=== PATIENT | female | born 1970 | race Caucasian/White ===

== ENCOUNTER 2024-12-05 16:14 | Emergency (ER) | payer BC, OTHER, SELFPAY ==
--- NOTE | ~2024-12-05 | XR_ITS ---
EXAMINATION: XR elbow LT min 3V, 12/05/2024 16:20 CDT HISTORY: pain posterior hit with a chain COMPARISON: No comparisons available. Findings: No acute fracture or malalignment. No significant degenerative changes. Soft tissues unremarkable. Impression: No acute fracture or malalignment. Reviewed, dictated and finalized at location P. Impression: No acute fracture or malalignment.
--- NOTE | 2024-12-05 16:15 | ED.UPPEXIN ---
HPI - Extremity Injury (Upper) General Chief Complaint: Extremity Injury, Upper Stated Complaint: left elbow injury Time Seen by Provider: 12/05/24 16:24 Source: patient and RN notes reviewed Mode of arrival: ambulatory Limitations: no limitations History of Present Illness HPI narrative: 54-year-old female presents to the [facility] with complaints of left elbow pain. Patient reports last night that she was hit in the back lateral aspect of the elbow with a metal dog chain. Swelling noted to the posterior lateral left elbow. No treatment prior to arrival Related Data Home Medications ?Medication ?Instructions ?Recorded ?Confirmed ?Last Taken ?Type paroxetine HCl 10 mg tablet mg PO 12/05/24 Unknown History Allergies Allergy/AdvReac Type Severity Reaction Status Date / Time pseudoephedrine (From Allergy Unknown Unknown Verified 12/05/24 16:27 Sudafed) Review of Systems Review of Systems: All systems reviewed & are unremarkable except as noted in HPI and below Constitutional: Constitutional: Reports no additional constitutional complaints ENT: Reports system reviewed and no additional complaints, except as documented Cardiovascular: Cardiovascular: Reports no additional cardiovascular complaints, Denies chest pain and Denies dyspnea Respiratory: Respiratory: Reports no additional respiratory complaints, Denies chest congestion, Denies cough and Denies dyspnea Musculoskeletal: Musculoskeletal: Reports as per HPI Integumentary/Breasts: Skin/Breast: Reports system reviewed and no additional complaints, except as docu PMFSH Comments At the time of my signature, I reviewed and agree with the nursing past medical, surgical, social, and family history. There is no relevant family history pertinent to the patient complaint. Exam Const: General: cooperative, healthy appearing, comfortable, no acute distress, well developed, alert and well nourished Nutritional Appearance: well nourished Orientation/consciousness: patient oriented x3 Limitations: no limitations HENMT: Head: normal to inspection Eyes: General: appearance normal, both eyes and all related structures Alignment and Position: alignment normal Neck: Neck: normal visual inspection, full ROM, no lymphadenopathy and no meningeal signs Chest: Chest palpation & inspection: normal inspection of the chest Resp: Effort & Inspection: normal respiratory effort and able to speak in complete sentences Cardio: Rate: regular rate Skin: General skin exam: normal color and no rashes or lesions noted Neuro: General: patient oriented x3, gait normal, moves all extremities and no meningeal signs Cognition (Neuro): normal cognition Speech: normal speech Gait exam (Neuro): Normal gait present Extrem: General: normal to inspection, full ROM, capillary refill normal and normal gait Left upper extremity: shoulder/upper arm inspection abnormal; no tenderness and no swelling, elbow/forearm tenderness, swelling and normal ROM, wrist normal to inspection and normal ROM and hand normal to inspection and normal capillary refill Psych: Appearance: grossly normal and well kempt Mental Status: mental status grossly normal Speech and movement: Normal speech and movement present and Clear speech present Affect: normal affect Attitude: cooperative Course Course Level of Care: Express Care Visit Vital Signs Vital signs: Vital Signs Temperature 97.5 F L 12/05/24 16:22 Pulse Rate 99 12/05/24 16:22 Respiratory Rate 20 12/05/24 16:22 Blood Pressure 118/79 12/05/24 16:22 Pulse Oximetry 99 12/05/24 16:22 Oxygen Delivery Room Air 12/05/24 16:22 Temperature 97.5 F L 12/05/24 16:22 Pulse Rate 99 12/05/24 16:22 Respiratory Rate 20 12/05/24 16:22 Blood Pressure 118/79 12/05/24 16:22 Pulse Oximetry 99 12/05/24 16:22 Oxygen Delivery Room Air 12/05/24 16:22 Reviewed MDM - Extremity Injury (Upper) MDM Narrative Medical decision making narrative: Patient sitting in exam room. Patient is nontoxic, vitals stable. Patient presents with pain to the left lateral posterior elbow. Was hit by a dog chain. X-ray negative. Patient appropriate for outpatient treatment of a contusion. Discharge instructions reviewed with patient, as well as provided in writing per nursing staff. The instructions also include specific and strict return/GO TO THE ER as well as f/u information. All questions have been answered, and the patient deny any further questions with discharge and discharge plan. Some parts of this dictation were generated by voice recognition software and may contain typographical and/or grammatical inaccuracies. Differential Diagnosis Differential diagnosis: Likely other (Contusion, fracture) Imaging Data Radiologist's impression: EXAMINATION: XR elbow LT min 3V, 12/05/2024 16:20 CDT HISTORY: pain posterior hit with a chain COMPARISON: No comparisons available. Findings: No acute fracture or malalignment. No significant degenerative changes. Soft tissues unremarkable. Impression: No acute fracture or malalignment. Critical Care Time Critical Care Time Critical Care Time: No Discharge Plan Discharge Clinical Impression: Swelling of lymph node Contusion of elbow, left Qualifiers: Encounter type: initial encounter Qualified Code(s): S50.02XA - Contusion of left elbow, initial encounter Patient Disposition: Home Condition: Stable Instructions: Lymphadenopathy (ED), Contusion in Adults (ED) Additional Instructions: Your Xray did not show a fracture. Ice should be applied to help reduce swelling. It can be used for 20 to 30 minutes, every 2-3 hours while awake. Do not apply ice directly to your skin. Wear an Juan [place] wrap or a elbow support/brace You can alternate ibuprofen 600mg and Tylenol 650mg every 4 hours as needed for pain Please schedule a follow-up visit with your personal physician for further evaluation and treatment within 2 weeks especially if symptoms persist. For new or worsening symptoms go directly to the emergency room Patient Language: Vietnamese Prescriptions: No Action paroxetine HCl 10 mg tablet PO Follow-up/Referrals: UNKNOWN,DOCTOR [Non-Staff] Stand Alone Forms: Work/School Release IP Time of Disposition: 16:42
[2024-12-05 16:22] VITALS: BP 118/79; PULSE 99; RESP 20; TEMP 36.4; O2SAT 99
--- OUTSIDE RECORDS SUMMARY | 2024-12-05 16:22 | XMS_ITS | Encounter Summary ---
Author Organization [facility] Healthcare Address [address] [place] [id number] Care Team Providers Care Buggy Man Name Role Phone Alejandro Sanchez Primary Care Provider Encounter Details Date Type Department Care Team (Late st Contact Info) Description 12/04/2022 Telephone [facility] [address] [place] [address] Brenna Vaughn RT Social History Tobacco Use Types Packs/Day Years Used Date Smoking Tobacco: Every Day Cigarettes Smokeless Tobacco: Current Comments:Smoking History Pac ks/day: 1 Packs Alcohol Use Standard Drinks/Week Comments Yes 0 (1 standard drink = 0.6 oz pur e alcohol) socially PHQ-2 Answer Date Recorded PHQ-2 Total Score (If total score is 3 or more points, staff should administer the PHQ-9) 0 10/29/2022 Comments No Sex and Gender Information Value Date Recorded Sex Assigned at Not on file Legal Sex Female 12:16 AM [employer] Gender Identity Not on file Sexual Orientation Not on file documented as of this encounter Plan of Treatment Not on file documented as of this encounter Visit Diagnoses Not on filedocumented in this encounter Care Teams Buggy Man Relationship Specialty Start Date End Date Alejandro Sanchez PA [address] [place] [address] [address] [facility] [place] [address] PCP - General Internal Medicine 09/29/22 documented as of this encounter
--- OUTSIDE RECORDS SUMMARY | 2024-12-05 16:22 | XMS_ITS | Clinical Summary ---
Author Organization [facility] Address [address] [place] [address] Care Team Providers Care Store Clerk Cashier Name Role Phone Alejandro Sanchez Primary Care Provider Allergies Active Allergy Reactions Criticality Noted Date Comments Chlorpheniramine Palpitations Reaction: tachycardia, Dextromethorphan Palpitations Reaction: tachycardia, Doxycycline Nausea only,Vomiting Reaction: Nausea, Vomiting, Erythromycin Nausea only,Vomiting Reaction: Nausea, Vomiting, Phenylephrine Palpitations Reaction: tachycardia, Propranolol Pseudoephedrine Palpitations Reaction: tachycardia, , Reaction: tachycardia, Medications albuterol HFA (ProAir HFA) 90 mcg/actuation inhaler Inhale 2 puffs every 4 (four) hours as needed for wheezing or shortness of breath 8.5 g 4 Active fluticasone propionate (FLONASE) 50 mcg/actuation nasal spray Administer 1 spray into each nostril daily 1 each 4 Active HYDROcodone-[place] taminophen (NORCO) 7.5-325 mg per tabletIndicatio ns:Pain Take 0.5 tablets by mouth every 6 (six) hours as needed for pain 20 tablet 5 Active PARoxetine (PAXIL) 10 mg tablet Take 1 tablet (10 mg total) by mouth every morning 90 tablet 1 5 07/22/19 26 Active nystatin creamIndication s:TV (tinea versicolor) Apply topically 2 (two) times a day 30 g 5 11/25/19 26 Active Active Problems Problem Noted Date Diagnosed Date Obstructive sleep apnea syndrome 02/27/2019 Assessment & Plan (07/18/2019 10:44 AM CDT): Hospital shut down limited and should get checked . Assessment & Plan (02/27/2019 3:46 PM EDITOR BOOK): Positive test for sleep apnea. and needs cpap titration Polycythemia 02/27/2019 Assessment & Plan (07/18/2019 10:48 AM CDT): Stable and mildly above nl and sleep apnea and smoking Added. monitor Assessment & Plan (02/27/2019 3:46 PM EDITOR BOOK): Expect from co mbo of smoke and sleep apnea get capap started and Recheck cbc in 3-4 months and cont down and stays down Tinea pedis of both feet 03/21/2018 Well woman exam 06/18/2017 Depression 07/22/2013 Overview (06/10/2016): DEPRESSIVE DISORDER NEC Musculoskeletal disorder of neck 07/22/2013 Overview (06/10/2016): NECK DISORDER/SYMPT NOS Chronic pain 07/22/2013 Overview (06/10/2016): Chronic Pain Assessment & Plan (07/18/2019 10:46 AM CDT): Low dose hydrocodone averages less then 1 days and actually 1 weekly gets 20 q quarter Assessment & Plan (04/16/2017 2:33 PM EDITOR BOOK): Patient requested a refill on her hydrocodone today. I explained the patient that given new laws she could no longer receives lorazepam and hydrocodone. She will need to pick 1 or the other. She stated she rarely uses the lorazepam and uses hydrocodone only as needed for severe pain. She wishes to discontinue lorazepam and continue hydrocodone sparingly. [place] prescription monitoring program web site was accessed per state requirements. Her last fill was confirmed as August 19, 2016-she received Vicodin ES 7.5-300 mg [address] Ambriz. She is not receiving analgesia from other providers. Patient's medication was refilled consistent with priors. Insomnia 07/22/2013 Overview (06/12/2016): Insomnia Tobacco dependence syndrome 07/22/2013 Overview (06/13/2016): TOBACCO USE DISORDER Assessment & Plan (06/09/2024 7:29 AM CDT): The patient was advised to quit smoking; the risks of continued tobacco use discussed. Assessment & Plan (11/16/2023 11:38 AM CDT): The patient was advised to quit smoking; the risks of continued tobacco use discussed. Assessment & Plan (10/29/2022 7:26 AM CDT): The patient was advised to quit smoking; the risks of continued tobacco use discussed. Assessment & Plan (07/17/2022 12:27 PM CDT): She was advised to quit smoking; the risks of continued tobacco use discussed. Assessment & Plan (05/22/2021 10:38 AM CDT): She was advised to quit smoking; the risks of continued tobacco use discussed. Assessment & Plan (08/07/2020 6:13 PM CDT): She was advised to quit smoking; the risks of continued tobacco use discussed. Assessment & Plan (12/08/2019 12:55 PM CDT): She was advised to quit smoking; the risks of continued tobacco use discussed. Assessment & Plan (10/18/2018 12:25 PM CDT): She was advised to quit smoking; the risks of continued tobacco use discussed. Counseled for approx 6 min Assessment & Plan (04/16/2017 2:33 PM EDITOR BOOK): Recommended cessation. She declines any assistance in this regard today. Resolved Problems Problem Noted Date Diagnosed Date Resolved Date Sprain of right elbow 12/24/20213 Assessment & Plan (12/24/2021 9:16 AM CDT): Trial of oral prednisone. Xrays ordered, will follow. Acute bronchitis due to othe r specified organisms 02/27/2019 07/18/2019 Assessment & Plan (02/27/2019 3:38 PM EDITOR BOOK): Trial prednisone and l iimit smoke and see if not settled hx not bacterial infection Otitis externa of both ears 03/21/2018 07/17/2022 Acute bronchitis with bronchospasm 04/16/2017 10/18/2018 Assessment & Plan (04/16/2017 2:28 PM EDITOR BOOK): Humidification, fluids, and rest were recommended. Patient was instructed to take antibiotic as directed. Patient was encouraged to take antibiotic with food. I have also recommended daily probiotic, yogurt or capsule, while on the antibiotic. Albuterol inhaler was provided for p.r.n. use for bronchospasm. Cough syrup with codeine for use at bedtime for cough. She understands she should not use this with hydrocodone. One or the other. Close follow-up here with absolutely any change in, worsening, or non improvement in condition. Cough 04/16/2017 10/18/2018 Assessment & Plan (04/16/2017 2:33 PM EDITOR BOOK): Influenza A negative and influenza B negative Current smoker 07/22/2013 08/07/2020 Overview (06/13/2016): Smoker Assessment & Plan (07/18/2019 10:49 AM CDT): Stable and should quit Acute bilateral low back db n without sciatica 07/22/2013 07/18/2022 Overview (06/13/2016): LUMBAGO Assessment & Plan (02/27/2019 3:42 PM EDITOR BOOK): actue pain flair frojmthe cougohing. Settle cough and back should settle. Wants off pain pills and on ativan but can't s witch back and forth Encounters Date Type Department Care Team Description 11/24/2024 2:00 PM CDT Office Visit [facility] [address] [place] [address] Office [facility] [address] [place] [address] Lex Womack MD Polycythemia (Primary Dx); TV (tinea versicolor) 11/24/2024 1:30 PM CDT Lab [address] [place] [address] Polycythemia 11/23/2024 Telephone [facility] [place] [facility] [address] [place] [address] Medical Office [facility] [address] [place] [address] Estefany Lorenzo, CLT 10/16/[address] [place] [address] Lex Womack MD 09/20/2024 Telephone [facility] [place] [facility] [address] [place] [address] Medical Office [facility] [address] [place] [address] Linda Grider, CLT from Last 3 Months Immunizations Immunization Administration Dates Next Due Influenza, Unspecified 06/09/2024(Deferr ed: Patient Refused),11/16/2023(Deferred: Patient Refused),12/06/2022(Deferred: Patient Refused),12/23/2021(Deferred: Patient Refused),12/06/2021(Deferred: Patient Refused),05/22/2021(Deferred: Patient Refused),07/18/2019(Deferred: Patient Refused),02/27/2019(Deferred: Patient Refused),12/06/2018(Deferred: Patient Refused),11/25/2018(Deferred: Patient Refused - not available),12/28/2017(Deferred: Patient Refused) Tdap 09/25/2021 Surgical History Surgery Date Site/Laterality Comments OTHER SURGICAL HISTORY 05/09,08/09,12/11: pt. 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 Medical 05/09,08/09,12/11 Hx Other Medical 1990 ; Outc ome: 40 week 6 lb(s) 14 oz Female Hx Other Medical 1993 ; Outc ome: 40 week 7 lb(s) 14 oz Male Smoking Polycythemia Family History Medical History Relation Name Comments Heart disease Father Hyperlipidemia Father Hypertension Father Hypertension; Hyperlipidemia Mother Heart disease Other 1 Family history of Heart disease; Hyperlipidemia Other 2 Family histor y of Hyperlipidemia; Hypertension Other 3 Family history of Hypertension; Heart disease Paternal Grandfather Breast cancer Neg Hx Ovarian cancer Neg Hx Thyroid cancer Neg Hx Relation Name Status Comments Father Mother Other 1 Other 2 Other 3 Paternal Grandfather Social History Tobacco Use Types Packs/Day Years Used Date Smoking Tobacco: Every Day Cigarettes 0.7 37.7 Started: 1987 Smokeless Tobacco: Current Tobacco Cessation:Ready to Q uit: Yes; Counseling Given: Yes Comments:Smoking History Packs/day: 1 Packs Alcohol Use Standard Drinks/Week Comments Yes 0 (1 standard drink = 0.6 oz pur e alcohol) socially AUDIT-C Answer Date Recorded Q1: How often do you have a drink containing alc ohol? 2-4 times a month 06/09/2024 Q2: How many drinks containi ng alcohol do you have on a typical day when you are drinking? 3 or 4 06/09/2024 Q3: How often do you have si x or more drinks on one occasion? Less than monthly 06/09/2024 PHQ-2 Answer Date Recorded PHQ-2 Total Score (If total score is 3 or more points, staff should administer the PHQ-9) 0 06/09/2024 Comments No Sex and Gender Information Value Date Recorded Sex Assigned at Not on file Legal Sex Female 12:16 AM EDITOR BOOK Gender Identity Not on file Sexual Orientation Not on file Obstetrics History Para Term AB IAB SAB Ectopic Multiple Livin g Live Births 2 2 2 2 2 Date Outcome GA Total Labor Labor/2nd/3rd Weight Sex Type Anes PTL Jduie A1 A5 Name Clin 1 Term 40w 0d 3.118 kg (6 lb 14 oz) F Vag-S pont Living 4 Term 40w 0d 3.572 kg (7 lb 14 oz) M Vag-S pont Living Last Filed Vital Signs Vital Sign Reading Time Taken Comments Blood Pressure 134/69 11/24/2024 1:33 PM CDT Pulse 97 11/24/2024 1:33 PM CDT Temperature 36.3 C (97.3 F) 11/24/2024 1:33 PM CDT Respiratory Rate 20 11/24/2024 1:33 PM CDT Oxygen Saturation 100% 11/24/2024 1:33 PM CDT Inhaled Oxygen Concentration - - Weight 67.9 kg (149 lb 9.6 oz) 11/24/2024 1:33 P M CDT Height 160 cm (5' 3) 06/09/2024 9:27 AM CDT Body Mass Index 26.5 06/09/2024 9:27 AM CDT Plan of Treatment Health Maintenance Due Date Last Done Comments Hepatitis C Screening 1970 Hepatitis B Screening 1988 Pneumococcal vaccine <65 (1 of 2 - PCV) 1989 Zoster Vaccine (1 of 2) 2020 Cervical Cancer Screening 12/12/2022 12/12/2021, Colon Cancer Screening-Sigmoidoscopy 10/25/2023 10/24/2018 Covid-19 Vaccine (2 - 2024-2 6 season) 2024 03/11/2021 Influenza Vaccine (#1) 2024 Regular Well Visit/Exam 18-64 11/15/2024, 12/12/2021, 09/25/2021, Additional history exists Lung Cancer Screening 12/10/2024 12/10/2023 Breast Cancer Screening-Mammogram 12/23/2024 12/24/2023, 11/02/2022, 10/27/2021, Additional history exists Depression Screening 06/09/2025 06/09/2024, 11/16/2023, 10/29/2022, Additional history exists DTaP/Tdap/Td Vaccine (2 - Td or Tdap) 09/26/2031 09/25/2021 Medical Devices Implanted Type Area Medicare Nurse Device Identifier Shelf Expiration Date Model / Serial / Lot [employer] Mammomark 10ga V Identifier Biopsy Site Mammotome Revolve [id number] - [id number] - [id number] Implanted:Qty: 1 on 12/04/2022 by Sean Luna MD at [facility] Breast Right: Breast Mandiant 09/24/2023 [id number] / [id number] / Description:Stereotactic Rig ht breast biopsy slightly upper slightly inner anterior right. Cores x 6. Microcals in cassette 5 and 6. Procedures Procedure Name Priority Date/Time Associated Diagnosis Comments EGFR Routine 11/24/2024 1:20 PM CDT Polycythemia DIFFERENTIAL AUTO Routine 11/24/2024 1:2 0 PM CDT Polycythemia COMPREHENSIVE METABOLIC PANEL Routine 11/24/2024 1:20 PM CDT Polycythemia CBC WITH AUTO DIFFERENTIAL Routine 11/24/2024 1:20 PM CDT Polycythemia SCREENING MAMMOGRAM BILATERAL W CHRIS Schedule Routine, Read Routine (OP Routine) 12/24/2023 8:33 AM CDT Screening mammogram for breast cancer CT LUNG CANCER SCREENING Schedule Routine, Read Routine (OP Routine) 12/10/2023 4:25 PM CDT Personal history of nicotine dependence PAP AND HIGH RISK HPV, REFLEX TO GENOTYPING Routine 12/12/2021 10:45 AM CDT Well woman exam HM COLONOSCOPY Routine 10/24/2018 from Last 3 Months or Most Recently Relevant to Health Maintenance Results * eGFR (11/24/2024 1:20 PM CDT) eGFR >90 >=60 mL/min/1. 73 m2 Comment: Interpretive Data Reference Interval Normal >/= 90 mL/min/1.73m2 Mildly decreased* 60 - 89 mL/min/1.73m2 Mildly to moderately decreased 45 - 59 mL/min/1.73m2 Moderately to severely decreased 30 - 44 mL/min/1.73m2 Severely decreased 15 - 29 mL/min/1.73m2 Kidney Failure < 15 mL/min/1.73m2 *Relative to young adult level Estimated glomerular filtration rate is determined by the 2020 CKD-EPI equation recommended by the National Kidney Foundation (A Unifying Approach to GFR Estimation: Recommendations of the NKF-ASK Task Force on Reassessing the Inclusion of Race in Diagnosing Kidney Disease, JASN 2020). The CKD-EPI equation should not be used for patients with unstable renal function and has not been validated in children and those over 70. Current interpretive data was last reviewed 2021. Testing performed by: [facility], [place], [address] Blood 11/24/2024 1:20 PM CDT 11/24/2024 1:48 PM CDT Manuela Castro PULMONARY SPECIALIST LAB BLOOD ORDERABLES Final Result [facility] ([place]) [facility] [place] [address] * Differential, auto (11/24/2024 1:20 PM CDT) Neutrophil abs 5.90 1.50 - 6.50 K/cumm [facility] ([place]) Comment:Testing performed by : [facility] [address], Medical Office [facility] [address], [place] [address] Imm gran abs 0.04 0.00 - 0.10 K/cumm [facility] ([place]) Comment:Testing performed by : [facility] [address], Medical Office [facility] [address], [place] [address] Lymphocyte abs 2.61 0.80 - 3.30 K/cumm [facility] ([place]) Comment:Testing performed by : [facility] [address], Medical Office [facility] [address], [place] [address] Monocyte abs 0.68 0.20 - 0.80 K/cumm [facility] ([place]) Comment:Testing performed by : [facility] [address], Medical Office [address], [place] [address] Eosinophil abs 0.43 0.00 - 0.50 K/cumm [facility] ([place]) Comment:Testing performed by : [facility] [address], Medical Office [address], [place] [address] Basophil abs 0.09 0.00 - 0.10 K/cumm [facility] ([place]) Comment:Testing performed by : [facility] [address], Medical Office [address], [place] [address] Neutrophil pct 60.5 % [facility] ([place]) Comment: Interpretive Data Percent cell count reference ranges are not reported, since discordance with absolute values may lead to misinterpretation of CBC data. Current Interpretive Data was last revised on 2022. Testing performed by: [facility] [address], Medical Office [address], [place] [address] Imm gran pct 0.4 % [facility] ([place]) Comment: Interpretive Data Percent cell count reference ranges are not reported, since discordance with absolute values may lead to misinterpretation of CBC data. Current Interpretive Data was last revised on 2022. Testing performed by: [facility] [address], Medical Office [address], [place] [address] Lymphocyte pct 26.8 % [facility] ([place]) Comment: Interpretive Data Percent cell count reference ranges are not reported, since discordance with absolute values may lead to misinterpretation of CBC data. Current Interpretive Data was last revised on 2022. Testing performed by: [facility] [address], Medical Office [address], [place] [address] Monocyte pct 7.0 % [facility] ([place]) Comment: Interpretive Data Percent cell count reference ranges are not reported, since discordance with absolute values may lead to misinterpretation of CBC data. Current Interpretive Data was last revised on 2022. Testing performed by: [facility] [address], Medical Office [address], [place] [address] Eosinophil pct 4.4 % [facility] ([place]) Comment: Interpretive Data Percent cell count reference ranges are not reported, since discordance with absolute values may lead to misinterpretation of CBC data. Current Interpretive Data was last revised on 2022. Testing performed by: [facility] [address], Medical Office [address], [place] [address] Basophil pct 0.9 % [facility] ([place]) Comment: Interpretive Data Percent cell count reference ranges are not reported, since discordance with absolute values may lead to misinterpretation of CBC data. Current Interpretive Data was last revised on 2022. Testing performed by: [facility] [address], Medical Office [facility] [address], [place] [address] Blood 11/24/2024 1:20 PM CDT 11/24/2024 1:26 PM CDT Manuela Castro PULMONARY SPECIALIST LAB BLOOD ORDERABLES Final Result [facility] ([place]) [address] [facility] [place] [address] * (ABNORMAL) CBC with auto differential (11/24/2024 1:20 PM CDT) WBC 9.75 3.80 - 9.90 K/cumm [facility] ([place]) Comment:Testing performed by : [facility] [address], Medical Office [facility] [address], [place] [address] Hgb 15.7(H) 11.9 - 15.5 g/dL [facility] ([place]) Comment:Testing performed by : [facility] [address], Medical Office [facility] [address], [place] [address] Hct 47.3(H) 35.6 - 45.5 % [facility] ([place]) Comment:Testing performed by : [facility] [address], Medical Office d[address], [place] [address] Plt 186 150 - 400 K/cumm [facility] ([place]) Comment:Testing performed by : [facility] [address], Medical Office [facility] [address], [place] [address] MPV 9.9 9.1 - 12.3 fL [facility] ([place]) Comment:Testing performed by : [facility] [address], Medical Office [facility] [address], [place] [address] RBC 5.23(H) 3.90 - 5.20 M/cumm [facility] ([place]) Comment:Testing performed by : [facility] [address], Medical Office [facility] [address], [place] [address] MCV 90.4 81.3 - 96.4 fL [facility] ([place]) Comment:Testing performed by : [facility] [address], Medical Office [facility] [address], [place] [address] MCH 30.0 27.1 - 33.3 pg [facility] ([place]) Comment:Testing performed by : [facility] [address], Medical Office [facility] [address], [place] [address] MCHC 33.2 32.3 - 35.7 g/dL [facility] ([place]) Comment:Testing performed by : [facility] [address], Medical Office [facility] [address] [facility] [address], [place] [address] RDW CV 12.6 11.1 - 14.9 % [facility] ([place]) Comment:Testing performed by : [facility] [address], Medical Office [facility] [address], [place] [address] RDW SD 41.9 35.7 - 48.1 fL [facility] ([place]) Comment:Testing performed by : [facility] [address], Medical Office [facility] [address], [place] [address] Blood 11/24/2024 1:20 PM CDT 11/24/2024 1:26 PM CDT Manuela Castro PULMONARY SPECIALIST LAB BLOOD ORDERABLES Final Result [facility] ([place]) [address] [facility] Department [place] [address] * Comprehensive metabolic panel (11/24/2024 1:20 PM CDT) Sodium 139 135 - 145 mmol/L [facility] ([place]) Potassium, pl 4.1 3.3 - 4.9 mmol/L [facility] ([place]) Chloride 102 97 - 110 mmol/L [facility] ([place]) CO2 26 22 - 32 mmol/L [facility] ([place]) Anion gap 11 2 - 15 mmol/L [facility] ([place]) BUN 11 6 - 25 mg/dL [facility] ([place]) Creatinine 0.64 0.60 - 1.10 mg/dL [facility] ([place]) Glucose 119 70 - 199 mg/dL [facility] ([place]) Comment: Interpretive Data Fasting glucose >/= 126 mg/dl is diagnostic for diabetes. Fasting is defined as no caloric intake for at least 8 hours. Fasting glucose between 100 mg/dl to 125 mg/dl is diagnostic of prediabetes. In a patient with classic symptoms of hyperglycemia or hyperglycemic crisis, a random glucose >/= 200 mg/dl is diagnostic for diabetes. In the absence of unequivocal hyperglycemia, results should be confirmed by repeat testing. The classification and Diagnosis of Diabetes Diabetes Care 202; 46: S19-S40. Current interpretive data was last revised 2022. Calcium 9.2 8.5 - 10.3 mg/dL [facility] ([place]) Bilirubin, total 0.9 0.1 - 1.2 mg/dL [facility] ([place]) Protein, pl 6.6 6.5 - 8.5 g/dL [facility] ([place]) Albumin 4.2 3.5 - 5.0 g/dL [facility] ([place]) Alk phos 77 40 - 130 Units/L [facility] ([place]) ALT 14 7 - 45 Units/L [facility] ([place]) AST 15 10 - 45 Units/L [facility] ([place]) Blood 11/24/2024 1:20 PM CDT 11/24/2024 1:48 PM CDT us Manuela Castro NP LAB BLOOD ORDERABLES Final Result [facility] ([place]) [address] [facility] [place] [address] * Screening Mammogram Bilateral W Chris (12/24/2023 8:33 AM CDT) Anatomical Region Laterality Modality Breast Bilateral Mammography 12/24/2023 10:1 7 AM CDT Impressions 12/24/2023 10:17 AM CDT No evidence of malignancy in either breast. FINAL ASSESSMENT: BI-RADS Category 2: Benign. RECOMMENDATION: Recommend return for annual screening mammogram in 12 months. Electronically signed by: Sean Luna M.D. Narrative 12/24/2023 10:17 AM CDT EXAMINATION: BILATERAL SCREENING MAMMOGRAM COMPARISON: 12/04/2022, 11/27/2022, 11/02/2022, 10/27/2021, 02/06/2020, 07/27/2018 TECHNIQUE: Full-field 2D and digital breast tomosynthesis (DBT) images were obtained. CAD was utilized. BREAST PARENCHYMAL COMPOSITION: There are scattered areas of fibroglandular density. FINDINGS: There is a biopsy marking clip in the right breast. There are a few benign calcifications in the left breast. There is no suspicious mass, calcification, or distortion in either breast. There is no new suspicious finding in either breast on mammogram. Alejandro WAYNE IMG MAMMO PROCEDURES Fi nal Result * CT Lung Cancer Screening (12/10/2023 4:25 PM CDT) Anatomical Region Laterality Modality Chest N/A Computed Tomogra phy 12/14/2023 2:13 PM CDT Narrative 12/14/2023 2:17 PM CDT EXAM DESCRIPTION: CT LUNG CANCER SCREENING REASON FOR STUDY: Screening CT of the chest in a current smoker with a 27 pack year smoking history. Additional history: None. TECHNIQUE: Low dose CT scan of the chest was performed without intravenous contrast using helical scanning technique. The exam extends from the lung apices through the lung bases. Automatic exposure control was used as a dose optimization technique. NOTE: This study was performed for the specific purposes of lung cancer screening and is not an alternative to diagnostic chest CT. RADIATION DOSE: CT dose index volume (CTDIvol) = 1.48 mGy COMPARISON: None FINDINGS: SMOKING RELATED LUNG DISEASE: There are mild emphysematous changes of lungs with scattered mild subsegmental atelectasis and scarring. There are scattered ground-glass centrilobular airspace opacities in the bilateral lungs, which is likely due to smoking related respiratory bronchiolitis. There is no definite evidence of a pneumothorax. The central airways are grossly patent. There are scattered mild bronchial wall thickening, which is likely related to mild chronic bronchitis/bronchiolitis. There is no definite evidence of a focal consolidation or pleural effusion. LUNG NODULES: There are scattered small pulmonary nodules noted. For example, there is a subpleural 0.3 cm pulmonary nodule in the lateral right upper lobe (axial image 54). There is a subpleural 0.4 cm pulmonary nodule in the anterior right upper lobe (axial image 74). There is a 0.4 cm pulmonary nodule in the anterior right upper lobe (axial image 78). There is a subtle 0.2 cm pulmonary nodule in the anterior left upper lobe (axial image 83). There is a 0.2 cm pulmonary nodule in the posterior left upper lobe abutting the left major fissure (axial image 95). CORONARY ARTERY CALCIFICATION: Not identified. OTHER: The heart size is normal. There is no definite evidence of pericardial effusion. There is no definite unenhanced CT evidence of mediastinal, hilar, or axillary lymphadenopathy. There are scattered subcentimeter mediastinal lymph nodes noted with largest measuring 0.6 cm in the subcarinal region (axial image 111). There are bilateral Bochdalek's hernias. The bilateral adrenal glands are grossly symmetrical and unremarkable. There is a minimal dextroscoliotic curvature of the spine with mild degenerative changes. IMPRESSION: Scattered small pulmonary nodules with the largest measuring up to 0.4 cm. Mild emphysematous changes of lungs with scattered mild subsegmental atelectasis and scarring. Scattered mild bronchial wall thickening, which is likely related to mild chronic bronchitis/bronchiolitis. Scattered ground-glass centrilobular airspace opacities in the bilateral lungs, which is likely due to smoking related respiratory bronchiolitis. Lung-RADS category 2: Benign appearance or behavior. Recommendation: Low dose Screening CT of chest in 12 months. THIS IS AN ELECTRONICALLY VERIFIED FINAL REPORT 12/14/2023 2:17 PM - Electronically signed by Latoya Jackson D.O. PS: PS Report ID: [id number] Reading Location: [id number] Procedure Note Manuel Latoya Ravinder DO - 12/14/2023 EXAM DESCRIPTION: CT LUNG CANCER SCREENING REASON FOR STUDY: Screening CT of the chest in a current smoker with a27 pack year smoking history. Additional history: None. TECHNIQUE: Low dose CT scan of the chest was performed without intravenous contrast using helical scanning technique. The exam extends from the lung apices through the lung bases. Automatic exposure control was used as adose optimization technique. NOTE: This study was performed for the specific purposes of lung cancer screening and is not an alternative to diagnostic chest CT. RADIATION DOSE: CT dose index volume (CTDIvol) = 1.48 mGy COMPARISON: None FINDINGS: SMOKING RELATED LUNG DISEASE: There are mild emphysematous changes oflungs with scattered mild subsegmental atelectasis and scarring. There are scattered ground-glass centrilobular airspace opacities in the bilateral lungs, which is likely due to smoking related respiratory bronchiolitis. There is no definite evidence of a pneumothorax. The central airways are grossly patent. There are scattered mild bronchial wall thickening, whichis likely related to mild chronic bronchitis/bronchiolitis. There is nodefinite evidence of a focal consolidation or pleural effusion. LUNG NODULES: There are scattered small pulmonary nodules noted. For example, there is a subpleural 0.3 cm pulmonary nodule in the lateralright upper lobe (axial image 54). There is a subpleural 0.4 cm pulmonarynodule in the anterior right upper lobe (axial image 74). There is a 0.4 cmpulmonary nodule in the anterior right upper lobe (axial image 78). There is asubtle 0.2 cm pulmonary nodule in the anterior left upper lobe (axial image 83). There is a 0.2 cm pulmonary nodule in the posterior left upper lobeabutting the left major fissure (axial image 95). CORONARY ARTERY CALCIFICATION: Not identified. OTHER: The heart size is normal. There is no definite evidence of pericardial effusion. There is no definite unenhanced CT evidence of mediastinal, hilar, oraxillary lymphadenopathy. There are scattered subcentimeter mediastinal lymphnodes noted with largest measuring 0.6 cm in the subcarinal region (axial [id number]). There are bilateral Bochdalek's hernias. The bilateral adrenal glands are grossly symmetrical and unremarkable. There is a minimal dextroscoliotic curvature of the spine with mild degenerative changes. IMPRESSION: Scattered small pulmonary nodules with the largest measuring up to 0.4cm. Mild emphysematous changes of lungs with scattered mild subsegmental atelectasis and scarring. Scattered mild bronchial wall thickening, which is likely related to mild chronic bronchitis/bronchiolitis. Scattered ground-glass centrilobular airspace opacities in the bilateral lungs, which is likely due to smoking related respiratory bronchiolitis. Lung-RADS category 2: Benign appearance or behavior. Recommendation: Low dose Screening CT of chest in 12 months. THIS IS AN ELECTRONICALLY VERIFIED FINAL REPORT 12/14/2023 2:17 PM - Electronically signed by Latoya Jackson D.O. PS: PS Report ID: [id number] Reading Location: [place] [address] PROCEDURES Final Result * Pap and High Risk HPV, reflex to Genotyping (12/12/2021 10:45 AM CDT) CLINICAL INFORMATION: [facility] Comment:None given LMP [facility] Comment:PM Previous Pap [facility] [employer] [facility] Comment:NONE GIVEN Prev. Bx [facility] [employer] [facility] Comment:NONE GIVEN SOURCE: [employer] [facility] Comment:Cervix, Endocervix Pap, specimen adequacy [facility] Comment: Satisfactory for evaluation. Endocervical/transformation zone component present. Partially obscuring inflammation HPV interp [facility] [employer] [facility] Comment:Negative for intraep ithelial lesion or malignancy. [facility] Comment: MMW, CT(ASCP) CT screening location: [place] [address] [address] [facility] [facility] Comment [facility] [employer] [facility] Comment: EXPLANATORY NOTE: The Pap is a screening test for cervical cancer. It is not a diagnostic test and is subject to false negative and false positive results. It is most reliable when a satisfactory sample, regularly obtained, is submitted with relevant clinical findings and history, and when the Pap result is evaluated along with historic and current clinical information. Human papillomavirus DNA, High Risk E6/E7 Not Detected NOT DETECTED [facility] Comment: Not Detected High Risk HPV types (16,18,31,33,35,39,45,51,52, 56,58,59,66,68) were not detected. Other HPV types which cause anogenital lesions may be present. The significance of the other types of HPV in malignant processes has not been established. Methodology: Real Time PCR Thin prep 12/12/2021 10:4 5 AM CDT 12/13/2021 1:34 AM CDT Diana Corona PULMONARY SPECIALIST LAB CYTOLOGY ORDERABLES F inal Result [facility] [address] [place] [address] [employer] [address] [facility] 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
--- OUTSIDE RECORDS SUMMARY | 2024-12-05 16:22 | XMS_ITS | Clinical Summary ---
Author Organization [facility] Address [address] [place] [address] Phone Care Team Providers Care Fisher Oyster Name Role Phone Mark Ambriz MD Primary Care Provider Unavaila ble Allergies Active Allergy Reactions Criticality Noted Date Comments Chlorpheniramine Palpitations 01/27/2022 Reaction: tachycardia, Dextromethorphan Palpitations 01/27/2022 Reaction: tachycardia, Doxycycline Nausea,Vomiting Medium Reaction: Nausea, Vomiting, Erythromycin Nausea,Vomiting Medium Reaction: Nausea, Vomiting, Propranolol Other (see Comments) 01/27/2022 Pseudoephedrine Palpitations High Reaction: tachycardia, , Reaction: tachycardia, Medications terbinafine (LAMISIL) 1 % Cream Apply 2 times daily. Application Site: feet. 15 g 9 Active Additional Information Patient not taking.Reported on 08/02/2024 LORazepam (ATIVAN) 1 MG Tablet Take 1 mg by mouth nightly as needed. Active Ibuprofen 200 MG Capsule Take 2 Capsules by mouth 3 times daily as needed. Active HYDROcodone-[place]ia taminophen (NORCO) 7.5-325 MG Tablet 2 Active ELDERBERRY PO Take by mouth as needed. Active Homeopathic Products (OSCILLOCOCCINU M PO) Take by mouth as needed. Active fluconazole (DIFLUCAN) 150 MG Tablet Take one tablet now and one tablet in 72 hours. 1 Tablet 3 Active Additional Information Patient not taking.Reported on 08/02/2024 albuterol (ProAir HFA) 108 (90 Base) MCG/ACT Aerosol SolutionIndicat ions:Bronchitis with acute wheezing take 2 Puffs by inhalation every 4 hours as needed for Wheezing or Cough. 8 g 4 Active promethazine-de xtromethorphan (PROMETHAZINE-D M) 6.25-15 MG/5ML SyrupIndication s:Bronchitis with acute wheezing Take 5 mL by mouth every 4 hours as needed for Cough. 240 mL 4 Active PARoxetine (PAXIL) 10 MG Tablet Take 10 mg by mouth every morning. 5 07/22/19 26 Active Active Problems Problem Noted Date Diagnosed Date Otitis externa of both ears 03/21/2018 Tinea pedis of both feet 03/21/2018 Tobacco dependence syndrome 07/22/201304/2023 Overview (03/09/2023): TOBACCO USE DISORDER Last Assessment & Plan: The patient was advised to quit smoking; the risks of continued tobacco use discussed. Immunizations Immunization Administration Dates Next Due TDAP Vaccine 09/25/2021 Family History Medical History Relation Name Comments High Cholesterol Father Hypertension Father High Cholesterol Mother Cancer Paternal Grandmother colon Relation Name Status Comments Father Mother Alive Paternal Grandmother Social History Tobacco Use Types Packs/Day Years Used Date Smoking Tobacco: Every Day Cigarettes 1 30 Smokeless Tobacco: Never Tobacco Cessation:Ready to Q uit: Not Asked; Counseling Given: Not Answered Comments:currently less than 1 pack Alcohol Use Standard Drinks/Week Comments Yes 6 (1 standard drink = 0.6 oz pur e alcohol) Socially AUDIT-C Answer Date Recorded Frequency of Alcohol Consumption 2-4 times a wed10/26/2018 Average Number of Drinks 3 or 4 019 Frequency of Binge Drinking Not on file 10/07 Sexually Active Control Partners Comments Not Currently Comments No Sex and Gender Information Value Date Recorded Sex Assigned at Not on file Legal Sex Female 8:06 PM CDT Gender Identity Not on file Sexual Orientation Not on file 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 Not on file Not on file Not on file Last Filed Vital Signs Vital Sign Reading Time Taken Comments Blood Pressure 114/66 08/02/2024 9:21 AM CDT Pulse 93 08/02/2024 9:21 AM CDT Temperature 36.2 C (97.2 F) 08/02/2024 9:21 AM CDT Respiratory Rate 16 08/02/2024 9:21 AM CDT Oxygen Saturation 97% 08/02/2024 9:21 AM CDT Inhaled Oxygen Concentration - - Weight 65.8 kg (145 lb) 05/15/2024 11:00 AM CDT Height 160 cm (5' 3) 05/15/2024 11:00 AM CDT Body Mass Index 25.69 05/15/2024 11:00 AM CDT Plan of Treatment Health Maintenance Due Date Last Done Comments Hepatitis C Virus (HCV) Screening 1970 Hepatitis B Immunization (1 of 3 - 19+ 3-dose series) 1989 Pneumococcal Immunization (50+ years) (1 of 2 - PCV) 1989 Pap Smear 10/18/1991 Cervical Cancer Screening (CCS) 2000 HPV/Cotest 2000 Cologuard 10/18/2015 Lung Cancer Screening 2020 Zoster Immunization (1 of 2) 2020 Immunochemical Fecal Occult Blood 12/12/2022 12/12/2021 Colonoscopy 10/27/2023 10/26/2018 Colorectal Cancer Screening 10/27/2023 Influenza Immunization (#1) 2024 SARS-COV-2 Immunization (2 - season) 2024 03/11/2021 Mammogram 12/23/2024 12/24/2023, 10/07, 10/27/2021, Additional history exists Td Immunization Every 10 Years (Adults With 1 Tdap) 09/26/2031 09/25/2021 Respiratory Syncytial Virus (RSV) Immunization (Adult) (1 - 1-dose 75+ series) 2045 DTaP/Tdap/Td Immunization Discontinued 09/25/2021 TdaP Immunization Discontinued 09/25/2021 Discussion re Starting/Frequency of Mammograms Discontinued 12/24/2023, 11/02/2022, 10/27/2021, Additional history exists Human Papillomavirus (HPV) Immunization Aged Out No longer eligible based on patient's age to complete this topic Meningococcal Immunization (ACWY) Aged Out No longer eligible based on patient's age to complete this topic Rotavirus Immunization Aged Out No lo nger eligible based on patient's age to complete this topic Insurance [facility] [employer] [facility] Care Teams Fisher Oyster Relationship Specialty Start Date End Date Mark Ambriz MD [address] [place] [address] PCP - General Internal Medicine 09/04/17
== END 2024-12-05 16:47 | disposition home or self-care (01) ==
PROVIDERS: Emergency Provider Nurse Practitioner
DX: R59.9 Enlarged lymph nodes, unspecified (principal); S50.02XA Contusion of left elbow, initial encounter; W22.8XXA Striking against or struck by other objects, initial encounter; F41.9 Anxiety disorder, unspecified; F32.A Depression, unspecified
CPT/HCPCS: 73080; 99203; G0463